=== PATIENT | female | born 1940 | race Caucasian/White ===

== ENCOUNTER 2016-08-30 16:47 | Emergency (ER) | payer MEDICARE, OTHER ==
[~2016-08-30] VITALS: Ht 149.9 cm; Wt 87.7 kg
[~2016-08-30 16:47] MED LIST: AMLO5TAB22 PO; CELE200C PO; CYMB30CA PO; GLUCTAB PO; LEVA500T PO; LIPI20TA PO; METO50CR PO; RANI300T PO
[2016-08-30 16:51] VITALS: BP 118/70; PULSE 102; RESP 20; TEMP 98.1; O2SAT 95
[2016-08-30 17:05] VITALS: BP 127/71; PULSE 100; RESP 16; O2SAT 95
[2016-08-30] MEDS ORDERED: SODIUM CHLORID 0.9% 500 ML INJ 500 ML IV ONE ×2 (17:30→18:30)
--- NOTE | 2016-08-30 17:33 | PD ---
HPI Chief Complaint: Diabetic Time Seen by Provider: 16:56 Travel History International Travel<30 days: No Contact w/Intl Traveler<30days: No Traveled to known affect area: No History of Present Illness HPI 75-year-old with multiple medical problems including recent treatment for small cell lung CVA, presents to the emergency department her generalized weakness and a blood sugar 57. Family reports that she is a history of chronic UTIs, sometimes apparently asymptomatic. She just completed a course of trimethoprim. They report that she was at her primary physician office yesterday and she had a low blood pressure. Do not remember what it was. Today they report her blood sugar "dropped" and they took it and it was 57. They report they gave her some carbs to eat and it really only came up to the 120s. They're worried because she's had sepsis and infections related to her urinary tract infections in the past. She just Back to [place] from visiting out of stay for [address] Meier for history of breast cancer, but in the interim has been treated for small cell lung CA with radiation and chemotherapy in May 2016 with resolution. She is not on any diabetes medications. History Past Medical History Narrative Medical Hyperlipidemia Hypertension Sleep apnea COPD Chronic UTIs With her arthritis History of breast CA in the past, Recent treatment for small cell lung CVA in May 2016 Diabetes, not on medications morbid obesity Menopausal: Yes Social History Alcohol Use: No Tobacco Use: No Allergies-Medications (Allergen,Severity, Reaction): Coded Allergies: Ceclor (Verified Allergy, Mild, Hives, 08/30/16) Codeine (Verified Allergy, Mild, Hives, 08/30/16) Erythromycin (Verified Allergy, Mild, Hives, 08/30/16) Penicillin (Verified Allergy, Mild, Hives, 08/30/16) Sulfa (Verified Allergy, Mild, Hives, 08/30/16) Toradol (Verified Allergy, Mild, Swelling, 08/30/16) Uncoded Allergies: NEXIUM (Allergy, Mild, Swelling, 08/27/03) Reported Meds & Prescriptions Reported Meds & Active Scripts Active Reported Stiolto Respimat Inh (Tiotropium-Olodaterol Inh) 2.5-2.5 Mcg/Act Aero 2 Puff INH DAILY Senna (Sennosides) 8.6 Mg Cap 17.2 Mg PO BID Omeprazole 40 Mg Cap 40 Mg PO DAILY Toprol XL (Metoprolol Succinate) 50 Mg Tab 50 Mg PO DAILY Lisinopril 20 Mg Tab 20 Mg PO DAILY Duoneb (Ipratropium-Albuterol Neb) 0.5-2.5 Mg/3 Ml Neb 3 Ml NEB QID [place] (Hydrocodone-Acetaminophen) 5-325 mg Tab 1 Tab PO Q4H PRN Mucinex DM (Dextromethorphan-Guaifenesin) 30-600 Mg Tab 1 Tab PO 2-3 TIMES A DAY Lasix (Furosemide) 40 Mg Tab 40 Mg PO DAILY Ferrous Sulfate 325 Mg Tab 325 Mg PO BID Lomotil (Diphenoxylate-Atropine) 2.5-0.025 Mg Tab 1 Tab PO TID PRN Claritin (Loratadine) 10 Mg Cap 10 Mg PO DAILY PRN Diclofenac Topical 1% Gel 1 Applic TOPICAL QID Cymbalta DR (Duloxetine HCl) 60 Mg Capdr 60 Mg PO HS Cipro (Ciprofloxacin HCl) 250 Mg Tab 250 Mg PO DAILY Vitamin D3 (Cholecalciferol) 5,000 Unit Tab 5,000 Units PO DAILY Celebrex (Celecoxib) 200 Mg Cap 200 Mg PO BID Atorvastatin (Atorvastatin Calcium) 20 Mg Tab 20 Mg PO DAILY Aspirin Adult Low Strength (Aspirin) 81 Mg Tabdr 81 Mg PO DAILY Amlodipine (Amlodipine Besylate) 5 Mg Tab 5 Mg PO DAILY Proventil Hfa 6.7 GM Inh (Albuterol Sulfate) 90 Mcg/Act Aer 2 Puff INH Q4HR PRN Review of Systems Except as stated in HPI: all other systems reviewed are Neg Physical Exam Narrative GENERAL: Well-appearing 75-year-old woman, no acute distress. SKIN: Warm and dry. Decreased skin turgor. HEAD: Atraumatic. Normocephalic. EYES: Pupils equal and round. No scleral icterus. No injection or drainage. ENT: No nasal bleeding or discharge. Mucous membranes pink and moist. NECK: Trachea midline. No JVD. CARDIOVASCULAR: Heart rates a little bit rapid. RESPIRATORY: No accessory muscle use. Clear to auscultation. Breath sounds equal bilaterally. GASTROINTESTINAL: Abdomen soft, non-tender, nondistended. Hepatic and splenic margins not palpable. MUSCULOSKELETAL: No obvious deformities. No edema. NEUROLOGICAL: Awake and alert. No obvious cranial nerve deficits. Motor grossly within normal limits. Normal speech. PSYCHIATRIC: Appropriate mood and affect; insight and judgment normal. Data Data Last Documented VS Vital Signs Date Time Temp Pulse Resp B/P Pulse Ox O2 Delivery O2 Flow Rate FiO2 08/30/16 17:05 100 16 95 Room Air 08/30/16 17:05 127/71 08/30/16 16:51 98.1 Orders Electrocardiogram (08/30/16 17:13) Complete Blood Count With Diff (08/30/16 17:13) Comprehensive Metabolic Panel (08/30/16 17:13) Lactic Acid Sepsis Protocol (08/30/16 17:13) Troponin I (08/30/16 17:13) Urinalysis - C+S If Indicated (08/30/16 17:13) Blood Culture (08/30/16 17:13) Chest, Single Ap (08/30/16 17:13) Blood Glucose (08/30/16 17:13) Ecg Monitoring (08/30/16 17:13) Iv Access Insert/Monitor (08/30/16 17:13) Oximetry (08/30/16 17:13) Oxygen Administration (08/30/16 17:13) Sodium Chlorid 0.9% 500 Ml Inj (Ns 500 M (08/30/16 17:30) Labs Laboratory Tests Test 08/30/16 08/30/16 17:18 17:20 White Blood Count 14.2 TH/MM3 Red Blood Count 4.19 MIL/MM3 Hemoglobin 11.4 GM/DL Hematocrit 35.5 % Mean Corpuscular Volume 84.6 FL Mean Corpuscular Hemoglobin 27.2 PG Mean Corpuscular Hemoglobin 32.2 % Concent Red Cell Distribution Width 16.9 % Platelet Count 245 TH/MM3 Mean Platelet Volume 7.0 FL Neutrophils (%) (Auto) 80.3 % Lymphocytes (%) (Auto) 8.2 % Monocytes (%) (Auto) 9.1 % Eosinophils (%) (Auto) 1.6 % Basophils (%) (Auto) 0.8 % Neutrophils # (Auto) 11.4 TH/MM3 Lymphocytes # (Auto) 1.2 TH/MM3 Monocytes # (Auto) 1.3 TH/MM3 Eosinophils # (Auto) 0.2 TH/MM3 Basophils # (Auto) 0.1 TH/MM3 CBC Comment DIFF FINAL Differential Comment Sodium Level 138 MEQ/L Potassium Level 4.2 MEQ/L Chloride Level 106 MEQ/L Carbon Dioxide Level 22.1 MEQ/L Anion Gap 10 MEQ/L Blood Urea Nitrogen 41 MG/DL Creatinine 1.60 MG/DL Estimat Glomerular Filtration 31 ML/MIN Rate Random Glucose 81 MG/DL Calcium Level 8.7 MG/DL Total Bilirubin 0.5 MG/DL Aspartate Amino Transf 19 U/L (AST/SGOT) Alanine Aminotransferase 25 U/L (ALT/SGPT) Alkaline Phosphatase 144 U/L Troponin I LESS THAN 0.02 NG/ML Total Protein 7.5 GM/DL Albumin 3.6 GM/DL Urine Color LIGHT-YELLOW Urine Turbidity CLEAR Urine pH 5.0 Urine Specific [place] 1.006 Urine Protein NEG mg/dL Urine Glucose (UA) NEG mg/dL Urine Ketones NEG mg/dL Urine Occult Blood NEG Urine Nitrite NEG Urine Bilirubin NEG Urine Urobilinogen LESS THAN 2.0 MG/DL Urine Leukocyte Esterase TRACE Urine WBC 6 /hpf Urine Mucus FEW /lpf Microscopic Urinalysis Comment CATH-CULT NOT IND Lactic Acid Level 1.4 mmol/L MDM Medical Decision Making Medical Screen Exam Complete: Yes Emergency Medical Condition: Yes Interpretation(s) My review of EKG: Sinus tachycardia rate of 101, normal axis, normal intervals, no acute ischemia. LABS: CBC remarkable for mild leukocytosis. CMP remarkable for mildly elevated BUN and creatinine Troponin negative Lactate 1.4 UA trace pyuria Chest x-ray negative. Differential Diagnosis Minimal hypoglycemia, occult infection, liver disease, other Narrative Course Medical decision making the INITIAL: This is a chronically ill 75 year-old woman, presents with what sounds like some generalized weakness, and some borderline low blood sugars. She apparently had a low blood pressure yesterday. This could be normal, response to treatment, or could represent some kind of subacute infectious process. Could also represent liver disease if she does not have glycogen reserves. She looks well now. Heart rate little bit fast. Skin turgor is a little bit down. She is on diuretics. We'll give her small fluid bolus, check labs, check cultures, reassess. FINAL: BUN and creatinine roughly doubled from about 2 years ago. Could suggest prerenal azotemia. I think this fits with her symptoms. There is trace pyuria but I don't think she has recurrent urinary tract infection. Culture is pending. We'll give another bolus of IV fluids. Recommend cutting Lasix back to 20 mg daily or 40 every other day until she follows up with her primary doctor. Diagnosis Primary Impression: Dehydration Additional Instructions: Cut your Lasix in half, other either 20 mg daily or 40 mg every other day. Weigh yourself everyday. Monitor blood sugar. Follow-up with your doctor in the next 2-3 days. Return to the emergency department for any new or worsening symptoms. Med/Other Pt SpecificInfo: Existing Med Changed Disposition: 01 DISCHARGE HOME Condition: Stable En Mai MD Aug 30, 2016 17:33
--- NOTE | 2016-08-30 17:45 | RADRPT ---
EXAM DATE/TIME: 08/30/2016 17:29 [facility] COMPARISON: CHEST PA & LAT, August 05, 2014, 12:05. INDICATIONS : Short of Breath MEDICAL HISTORY : Hypertension. Chronic obstructive pulmonary disease. Congestive heart failure. Diabetes type 2, L rodger Cance, Breast Ca SURGICAL HISTORY : Mastectomy, right. ENCOUNTER: Initial ACUITY: 2 days PAIN SCORE: 0/10 LOCATION: Bilateral chest FINDINGS: A single view of the chest demonstrates the lungs to be symmetrically aerated without evidence of mas s, infiltrate or effusion. The cardiomediastinal contours are unremarkable. Osseous structures are intact. There is an indwelling right subclavian venous catheter CONCLUSION: No acute disease. Martin Canas MD on August 30, 2016 at 17:43 Board Certified Radiologist. This report was verified electronically.
[2016-08-30 17:49] LABS: AUTOMATED NEUTROPHIL # 11.4 TH/MM3 (1.8-7.7); BASOPHIL # 0.1 TH/MM3 (0-0.2); BASOPHIL % 0.8 % (0.0-2.0); EOSINOPHIL # 0.2 TH/MM3 (0-0.4); EOSINOPHIL % 1.6 % (0.0-4.0); HEMATOCRIT 35.5 % (35.0-46.0); HEMO FLAGS DIFF FINAL; LYMPH % 8.2 % (9.0-44.0); LYMPHOCYTE # 1.2 TH/MM3 (1.0-4.8); MEAN CELL VOLUME 84.6 FL (80.0-100.0); MEAN CORPUSCULAR HEMOGLOBIN 27.2 PG (27.0-34.0); MEAN CORPUSCULAR HGB CONC 32.2 % (32.0-36.0); MONO % 9.1 % (0.0-8.0); NEUT % 80.3 % (16.0-70.0); PLATELET COUNT 245 TH/MM3 (150-450); RED BLOOD COUNT 4.19 MIL/MM3 (4.00-5.30); RED CELL DISTRIBUTION WIDTH 16.9 % (11.6-17.2); WHITE BLOOD COUNT 14.2 TH/MM3 (4.0-11.0)
[2016-08-30] MEDS ORDERED: ALBU6.7H INH (17:54)
[2016-08-30] MEDS ORDERED: SENN8.6C PO (17:54)
[2016-08-30] MEDS ORDERED: DICL1GEL7 TOPICAL (17:54)
[2016-08-30] MEDS ORDERED: CLAR10CA3 PO (17:54)
[2016-08-30] MEDS ORDERED: LOMO2.5T PO (17:54)
[2016-08-30] MEDS ORDERED: CHOL50008 PO (17:54)
[2016-08-30] MEDS ORDERED: IPRASOL NEB (17:54)
[2016-08-30] MEDS ORDERED: NORC5TAB PO (17:54)
[2016-08-30] MEDS ORDERED: CYMB60CA PO (17:54)
[2016-08-30] MEDS ORDERED: ASPI1TAB91 PO (17:54)
[2016-08-30] MEDS ORDERED: MUCI30TA2 PO (17:54)
[2016-08-30] MEDS ORDERED: FURO1TAB60 PO (17:54)
[2016-08-30] MEDS ORDERED: CIPR250T52 PO (17:54)
[2016-08-30] MEDS ORDERED: CELE200C PO (17:54)
[2016-08-30] MEDS ORDERED: TOPR50TA PO (17:54)
[2016-08-30] MEDS ORDERED: LISI-515 PO (17:54)
[2016-08-30] MEDS ORDERED: ATOR20TA15 PO (17:54)
[2016-08-30] MEDS ORDERED: FERR325T PO (17:54)
[2016-08-30] MEDS ORDERED: OMEP40CA2 PO (17:54)
[2016-08-30] MEDS ORDERED: TIOT1AER INH (17:54)
[2016-08-30] MEDS ORDERED: AMLO5TAB2 PO (17:54)
[2016-08-30 18:02] LABS: BLOOD, URINE NEG (NEG); GLUCOSE,URINE NEG (NEG); KETONE, URINE NEG (NEG); MUCUS URINE FEW /lpf (OCC); NITRITE,URINE NEG (NEG); URINE COLOR LIGHT-YELLOW (YELLW/STRAW)
[2016-08-30 18:04] LABS: COMMENT (UR) CATH-CULT NOT IND; CULTURE IF INDICATED CATH CULTURE NOT IND
[2016-08-30 18:11] LABS: ANION GAP 10 MEQ/L (5-15); AST (GOT) 19 U/L (15-37); BICARBONATE 22.1 MEQ/L (21.0-32.0); BLOOD UREA NITROGEN 41 MG/DL (7-18); CHLORIDE 106 MEQ/L (98-107); GLOMERULAR FILTRATION RATE 31 ML/MIN (>89); POTASSIUM 4.2 MEQ/L (3.5-5.1); SODIUM (NA) 138 MEQ/L (136-145)
[2016-08-30 18:16] LABS: ALKALINE PHOSPHATASE 144 U/L (45-117); ALT (GPT) 25 U/L (10-53); TOTAL BILIRUBIN ADULT 0.5 MG/DL (0.2-1.0)
[2016-08-30 18:30] VITALS: BP 124/57; PULSE 96; RESP 16; O2SAT 96
[2016-08-30 19:02] VITALS: BP 118/59; PULSE 95; RESP 20; O2SAT 95
--- NOTE | 2016-08-31 16:48 | EKG ---
Date Performed: 08/30/2016 Time Performed: 17:38:17 PTAGE: 75 years EKG: SINUS TACHYCARDIA POSSIBLE LEFT ATRIAL ENLARGEMENT ABNORMAL RHYTHM ECG NO PREVIOUS TRACING DOCTOR: Gildardo Lamas Interpretating Date/Time 08/31/2016 16:46:58
== END 2016-08-30 20:10 | disposition home or self-care (01) ==
LOC: NEPC 16:47
DX: E86.0 Dehydration (principal); E78.5 Hyperlipidemia, unspecified; I10 Essential (primary) hypertension; J44.9 Chronic obstructive pulmonary disease, unspecified; R00.0 Tachycardia, unspecified
CPT/HCPCS: 71010; 80053; 81001; 83605; 84484; 85025; 87040; 93005; 96360; 99285; J1642; J7040